=== PATIENT | female | born 1955 | race Caucasian/White ===

== ENCOUNTER 2020-08-30 15:14 | Emergency (ER) | payer OTHER ==
--- NOTE | 2020-08-30 17:12 | EDPHYS ---
Physician Documentation [facility] Name: Chelsi Malik Age: 64 yrs Sex: Female : 1955 Arrival Date: 08/30/2020 Time: 15:33 Bed 13 Private MD: ED Physician Kel Reinoso HPI: 08/30 15:47 This 64 yrs old Female presents to ER via EMS with complaints of Syncope/near rn syncope. 15:47 The patient has experienced near-syncope, almost passed out, felt dizzy, felt faint, rn felt generally weak. Onset: The symptoms/episode began/occurred just prior to arrival. Duration: This was a single episode. Associated signs and symptoms: Pertinent positives: dizziness, lightheadedness, Pertinent negatives: abdominal pain, ataxia, blurred vision, chest pain, confusion, diaphoresis, headache, seizure, shortness of breath, vertigo, vomiting. Current symptoms: Currently, the patient is not experiencing any symptoms. The patient has not experienced similar symptoms in the past. Reports at work, in small room with 4 other people, standing, felt lightheaded, dizzy, sat down, both legs felt weak, denies syncope, but co-worker reported possible syncope with brief episode of confusion after or during episode. Patient states normally has low blood pressure and hadn't eaten lunch yet. Vitals within normal limits for EMS and here. Patient requesting that nothing be done as she does not have insurance and does not want a bill. States she is back to normal and asymptomatic. . Historical: - Allergies: 15:43 unknown eye drops; ss - PMHx: 16:26 raynaud's; jl7 - Immunization history:: Adult Immunizations up to date. - Social history:: Smoking status: Patient denies any tobacco usage or history of. - Family history:: not pertinent. - Hospitalizations: : No recent hospitalization is reported. ROS: 15:47 Constitutional: Negative for fever, chills, and weight loss, Eyes: Negative for injury, rn pain, redness, and discharge, ENT: Negative for injury, pain, and discharge, Neck: Negative for injury, pain, and swelling, Cardiovascular: Negative for chest pain, palpitations, and edema, Respiratory: Negative for shortness of breath, cough, wheezing, and pleuritic chest pain, Abdomen/GI: Negative for abdominal pain, nausea, vomiting, diarrhea, and constipation, Back: Negative for injury and pain, : Negative for injury, bleeding, discharge, and swelling, MS/Extremity: Negative for injury and deformity, Skin: Negative for injury, rash, and discoloration, Neuro: Negative for headache, focal weakness, numbness, tingling, and seizure. Exam: 15:47 Constitutional: This is a well developed, well nourished patient who is awake, alert, rn and in no acute distress. Head/Face: Normocephalic, atraumatic. Eyes: Conjunctiva and sclera are non-icteric and not injected. Periorbital areas with no swelling, redness, or edema. Neck: No Meningismus. Cardiovascular: Regular rate and rhythm. No pulse deficits. Respiratory: Speaking full sentences, joking, laughing. No increased work of breathing, no retractions or nasal flaring. Skin: Warm, dry. + digital clubbing and signs of distal cyanosis (has diagnosis of raynaud's) MS/ Extremity: Pulses equal, no cyanosis. Neurovascular intact. Full, normal range of motion. Equal circumference. Neuro: Awake and alert, GCS 15, oriented to person, place, time, and situation. Cranial nerves II-XII grossly intact. Motor strength 5/5 in all extremities. Sensory grossly intact. Cerebellar exam normal. Vital Signs: 15:42 BP 117 / 40; Pulse 79; Resp 16; Pulse Ox 95% on R/A; Pain 0/10; ss 16:27 BP 112 / 51; Pulse 81; Resp 17; Pulse Ox 92% ; jl7 17:23 BP 123 / 58; Pulse 77; Resp 15; Pulse Ox 94% ; jl7 MDM: 15:47 Patient medically screened. rn 17:09 Differential Diagnosis: cardiac arrhythmia, emotional response, idiopathic syncope, rn transient ischemic attack, vasovagal episode, dehydration, arrythmia . Data reviewed: vital signs, nurses notes, and as a result, I will discharge patient. Counseling: I had a detailed discussion with the patient and/or guardian regarding: the historical points, exam findings, and any diagnostic results supporting the discharge/admit diagnosis, the need for outpatient follow up, to return to the emergency department if symptoms worsen or persist or if there are any questions or concerns that arise at home. ED course: Pt observed, no changes in clinical picture or vitals, discussed case and w/u again, patient still sure she wants to leave without evaluation. Understands risks of leaving after near syncope/syncope without w/u. Pt stands with standing BP 123/58, ambulatory and still normal neuro exam. Will sign out AMA. . 17:09 Refusal of service: The patient/guardian displays adequate decision making capability rn and despite a detailed discussion of alternatives, benefits, risks, and consequences refuses: CT Scan, all lab tests, all X-rays. Administered Medications: No medications were administered Disposition: 08/30/20 17:12 Patient has left against medical advice. Impression: Near syncope. - Patients states they are going to Home. - Condition is Stable. - Discharge Instructions: Near-Syncope. Follow up: Private Physician; When: As needed; Reason: Recheck today's complaints, Re-evaluation by your physician. - Problem is new. - Symptoms are resolved. Signatures: Kel Reinoso MD MD rn Smirch, Shelby, RN RN Tanesha Beltran RN RN jl7 Corrections: (The following items were deleted from the chart) 17:24 17:12 08/30/2020 17:12 Patients has left against medical advice. Impression: Near jl7 syncope. Patient states they are going to Home. Condition is Stable. Follow up: Private Physician; When: As needed; Reason: Recheck today's complaints, Re-evaluation by your physician. Problem is new. Symptoms are resolved. rn
--- NOTE | 2020-08-30 17:12 | ER ---
Nurse's Notes [facility] Name: Chelsi Malik Age: 64 yrs Sex: Female : 1955 Arrival Date: 08/30/2020 Time: 15:33 Bed 13 Private MD: Diagnosis: Near syncope Presentation: 08/30 15:33 Chief complaint: EMS states: Pt was at work when she suddenly felt dizzy and clammy and ss fell to the floor. Pt denies LOC, but coworkers report that patient appears that she was briefly "out" and when she came to she was disoriented for a moment. Upon arrival to ED, patient has no complaints, is A\\T\\O x3. Coronavirus screen: Client denies travel out of the [place] in the last 14 days. Ebola Screen: Patient denies exposure to infectious person. Patient denies travel to an Ebola-affected area in the 21 days before illness onset. Initial Sepsis Screen: Does the patient meet any 2 criteria? No. Patient's initial sepsis screen is negative. Does the patient have a suspected source of infection? No. Patient's initial sepsis screen is negative. Risk Assessment: Do you want to hurt yourself or someone else? Patient reports no desire to harm self or others. Onset of symptoms was August 30, 2020. 15:33 Method Of Arrival: EMS: [facility] 15:33 Acuity: HARRY 3 ss 15:45 Care prior to arrival: Glucose check: 69. ss Historical: - Allergies: 15:43 unknown eye drops; ss - PMHx: 16:26 raynaud's; jl7 - Immunization history:: Adult Immunizations up to date. - Social history:: Smoking status: Patient denies any tobacco usage or history of. - Family history:: not pertinent. - Hospitalizations: : No recent hospitalization is reported. Screenin:43 Abuse screen: Denies threats or abuse. Denies injuries from another. Nutritional ss screening: No deficits noted. Tuberculosis screening: Never had TB. Fall Risk None identified. Assessment: 15:43 General: Appears in no apparent distress. comfortable, Behavior is calm, cooperative, ss Denies fever, feeling ill, fatigue, chills. General: Reports. Pain: Denies pain. Neuro: Level of Consciousness is awake, alert, obeys commands, Oriented to person, place, time, situation, Quality Compliance Manager are equal bilaterally Moves all extremities. Full function Speech is normal, Facial symmetry appears normal, Pupils are PERRLA, Denies blurred vision dizziness, headache. Cardiovascular: Capillary refill < 3 seconds is brisk in bilateral fingers Patient's skin is warm and dry. Rhythm is regular. Respiratory: Airway is patent Respiratory effort is even, unlabored, Respiratory pattern is regular, symmetrical. GI: No signs and/or symptoms were reported involving the gastrointestinal system. Patient currently denies abdominal pain, diarrhea, nausea, vomiting. EENT: Oral mucosa is moist. Derm: Skin is intact, is healthy with good turgor, Skin is dry, Skin is pink, warm \\T\\ dry. normal. Musculoskeletal: Circulation, motion, and sensation intact. Range of motion: intact in all extremities, Swelling absent. Musculoskeletal: clubbed fingers noted. 17:00 Reassessment: Patient appears in no apparent distress at this time. No changes from jl7 previously documented assessment. Patient and/or family updated on plan of care and expected duration. Pain level reassessed. Patient is alert, oriented x 3, equal unlabored respirations, skin warm/dry/pink. Vital Signs: 15:42 BP 117 / 40; Pulse 79; Resp 16; Pulse Ox 95% on R/A; Pain 0/10; ss 16:27 BP 112 / 51; Pulse 81; Resp 17; Pulse Ox 92% ; jl7 17:23 BP 123 / 58; Pulse 77; Resp 15; Pulse Ox 94% ; jl7 ED Course: 15:33 Patient arrived in ED. ss 15:33 Arm band placed on right wrist. ss 15:36 Triage completed. ss 15:43 Patient has correct armband on for positive identification. Bed in low position. Call ss light in reach. 15:45 rotor plate washer on. Pulse ox on. NIBP on. jl7 15:47 Kel Reinoso MD is Attending Physician. rn 16:26 Tanesha Beltran RN is Primary Nurse. jl7 17:23 No provider procedures requiring assistance completed. Patient did not have IV access jl7 during this emergency room visit. Administered Medications: No medications were administered Outcome: 17:23 AMA AMA form signed jl7 17:23 Condition: stable 17:23 Discharge instructions given to patient. 17:24 Patient left the ED. jl7 Signatures: Kel Reinoso MD MD rn Marquita Reddy RN RN ss Tanesha Beltran RN RN jl7
[2020-08-30 17:31] VITALS: BP 123/58; O2SAT 94
== END 2020-08-30 17:24 | disposition left against medical advice (07) ==
LOC: ER 15:14
DX: R55 Syncope and collapse (principal); Z53.29 Procedure and treatment not carried out because of patient's decision for other reasons
CPT/HCPCS: 99284

== ENCOUNTER 2021-12-13 15:34 | Emergency (ER) | payer MEDICARE ==
--- NOTE | 2021-12-13 17:46 | EDPHYS ---
Physician Documentation [facility] Name: Chelsi Malik Age: 66 yrs Sex: Female : 1955 Arrival Date: 12/13/2021 Time: 15:36 Bed 2 Private MD: ED Physician David Genao HPI: 12/13 15:41 This 66 yrs old Female presents to ER via Unassigned with complaints of CPR. ms3 15:41 Preceding the arrest, the patient was dyspneic. The arrest occurred in a car. ms3 Pre-hospital course: The arrest was witnessed by EMS. EMS care prior to arrival: initiation of ACLS, peripheral IV, intubation was successfully performed, ACLS details: Initial rhythm was tachycardia. The presenting rhythm is PEA. Airway: oral intubation, Medications given by EMS prior to arrival - Epinephrine IV x 3 doses, Defibrillation was not performed, an external pacer was not used. Historical: - Allergies: 15:44 unknown eye drops; iw - PMHx: 15:44 raynaud's; iw ROS: 15:41 Unable to obtain ROS due to Unconscious . ms3 Exam: 15:41 Constitutional: The patient appears frail, obviously ill, pale. ms3 15:41 Head/face: Atraumatic, normocephalic . 15:41 Eyes: Pupils: are fixed and dilated. 15:41 Neck: External neck: is normal, no abrasions, no ecchymosis, no laceration, no swelling. 15:41 Chest/axilla: Inspection: normal, no abrasion. 15:41 Cardiovascular: No pulses, Bedside US without cardiac activity. 15:41 Respiratory: Intubated, no wheezing with bagging. 15:41 Abdomen/GI: Inspection: abdomen appears normal, Palpation: soft. 15:41 Skin: Appearance: Color: cyanotic, Temperature: normal temperature, Moisture: dry, ecchymosis, not noted, diaphoresis is not appreciated. 15:41 Neuro: Unresponsive; GCS 3. Vital Signs: 15:36 Temp 97.5(R); iw 15:47 Weight 54.43 kg; Height 5 ft. 2 in. (157.48 cm); jl7 15:47 Body Mass Index 21.95 (54.43 kg, 157.48 cm) jl7 Procedures: 15:41 CPR: Initial patient assessment: unresponsive, no respiratory effort, pale, intubated, ms3 Ambu ventilation, pulses present w/ compressions, The presenting cardiac rhythm is PEA. respirations assisted with BVM, Compressions: began prior to arrival. Meds given: Epinephrine X 1, despite ED evaluation and treatment, the patient . CPR was stopped at 15:37. MDM: 15:41 Patient medically screened. ms3 15:41 Differential diagnosis: arrythmia, cardiac arrest, respiratory arrest. Data reviewed: ms3 vital signs, nurses notes. ED course: Discussed code summary with patient's daughter and informed her of patient's with Sylvester ernst.. Administered Medications: 15:35 Drug: EPINEPHrine 0.1mg/mL 1:10,000 1 mg Route: IVP; Site: left hand; iw Disposition Summary: 12/13/21 15:41 Patient Location: Home ms3 Pronouncing Physician: David Genao ms3 Time of : 15:37 12/13/2021 ms3 Diagnosis - Cardiac arrest, cause unspecified ms3 Signatures: Cindy Oliver, RN RN iw David Genao DO DO ms3 Corrections: (The following items were deleted from the chart) 16:06 15:41 CPR: Initial patient assessment: unresponsive, no respiratory effort, pale, ms3 intubated, Ambu ventilation, pulses present w/ compressions, The presenting cardiac rhythm is PEA. respirations assisted with BVM, Compressions: began prior to arrival. Meds given: Epinephrine X 1, despite ED evaluation and treatment, the patient . CPR was stopped at 15:37. ms3
--- NOTE | 2021-12-13 17:46 | ER ---
Nurse's Notes [facility] Name: Chelsi Malik Age: 66 yrs Sex: Female : 1955 Arrival Date: 12/13/2021 Time: 15:36 Bed 2 Private MD: Diagnosis: Cardiac arrest, cause unspecified Presentation: 12/13 15:30 Chief complaint: EMS states: toned out to [employer] parking lot, pt found slumped in iw vehicle with agonal respirations, pt had faint pulse, EMS began bagging pt, PEA en route , administered 3 epi , intubated [employer], arrives to ER PEA on monitor , on thumper. Care prior to arrival: Assisted ventilation, Oral intubation, CPR via thumper performed by EMS and is still in progress Medication(s) given: IV initiated. 20 GA, in the left hand, Glucose check: 144 Oxygen administered. via AMBU bag. Compressions began prior to arrival. 15:30 Method Of Arrival: EMS: [facility] iw 15:30 Acuity: HARRY 1 iw 15:45 Coronavirus screen: At this time, the client does not indicate any symptoms associated iw with coronavirus-19. Ebola Screen: Patient negative for fever greater than or equal to 101.5 degrees Fahrenheit, and additional compatible Ebola Virus Disease symptoms Patient denies exposure to infectious person. Patient denies travel to an Ebola-affected area in the 21 days before illness onset. No symptoms or risks identified at this time. Initial Sepsis Screen: Does the patient meet any 2 criteria? No. Patient's initial sepsis screen is negative. Does the patient have a suspected source of infection? No. Patient's initial sepsis screen is negative. Risk Assessment: Do you want to hurt yourself or someone else? Unable to obtain. Historical: - Allergies: 15:44 unknown eye drops; iw - PMHx: 15:44 raynaud's; iw Assessment: 15:30 CPR assessment: unresponsive, no respiratory effort, intubated, Ambu ventilation, iw cyanotic. Cardiac rhythm is PEA. 15:35 CPR assessment: unresponsive, no respiratory effort, intubated, Ambu ventilation, iw cyanotic. Cardiac rhythm is PEA. Vital Signs: 15:36 Temp 97.5(R); iw 15:47 Weight 54.43 kg; Height 5 ft. 2 in. (157.48 cm); jl7 15:47 Body Mass Index 21.95 (54.43 kg, 157.48 cm) jl7 ED Course: 15:35 Maintain EMS IV. Dressing intact. Good blood return noted. Site clean \T\ dry. Gauge \T\ iw site: 20 left hand . 15:36 Patient arrived in ED. jl7 15:40 David Genao DO is Attending Physician. ms3 15:41 David Genao DO is Pronouncing Provider. ms3 15:44 Triage completed. iw 15:45 Tanesha Beltran, RN is Primary Nurse. jl7 15:46 Patient has correct armband on for positive identification. iw Administered Medications: 15:35 Drug: EPINEPHrine 0.1mg/mL 1:10,000 1 mg Route: IVP; Site: left hand; iw Outcome: 15:37 Outcome Patient iw 15:37 Patient : Time of 15:37 Pronounced by David Genao DO 15:37 Condition: 17:45 Patient left the ED. jl7 Signatures: Cindy Oliver, RN RN iw Tanesha Beltran, RN RN jl7 David Genao DO DO ms3 Corrections: (The following items were deleted from the chart) 16:06 15:36 Patient : Time of 15:36 Pronounced by David Genao DO iw iw 16:07 15:36 Outcome Patient iw iw 16:07 15:36 Condition: iw iw 16:07 15:36 Patient : Time of 15:37 Pronounced by David Genao DO iw iw
[2021-12-13 17:49] VITALS: TEMP 97.5
== END 2021-12-13 17:45 | disposition expired ==
LOC: ER 15:34
DX: I46.9 Cardiac arrest, cause unspecified (principal)